=== PATIENT | male | born 1985 | race African-American/Black ===

== ENCOUNTER 2018-12-18 01:00 | Emergency (ER) | payer SELFPAY ==
[~2018-12-18] VITALS: Ht 175.3 cm; Wt 100.0 kg
[2018-12-18 01:05] VITALS: BP 146/101
== END 2018-12-18 02:57 | disposition left against medical advice (07) ==
LOC: ER 01:00
DX: F91.1 Conduct disorder, childhood-onset type (principal); F10.129 Alcohol abuse with intoxication, unspecified; Y90.9 Presence of alcohol in blood, level not specified
CPT/HCPCS: 99283